=== PATIENT | male | born 1985 | race Caucasian/White ===

== ENCOUNTER 2021-05-20 00:26 | Emergency (ER) | payer SELFPAY ==
[~2021-05-20 00:26] MED LIST: CLINDAMYCIN HC300 MG PO; HYDROCODONE BIT1 T11 PO; MOTRIN800 MG PO
== END 2021-05-20 00:30 ==
LOC: ED 00:26
DX: R26.81 Unsteadiness on feet (principal); Z53.21 Procedure and treatment not carried out due to patient leaving prior to being seen by health care provider